=== PATIENT | male | born 1965 | race Asian ===

== ENCOUNTER 2018-10-08 15:13 | Emergency (ER) | payer OTHER ==
[2018-10-08 15:27] VITALS: BP 153/100; TEMP 98.4; BMI 28.7
--- NOTE | 2018-10-08 15:56 | PDOC ---
History of Present Illness - General Chief Complaint: Blood Pressure Problem Stated Complaint: HTN Time Seen by Provider: 10/08/18 15:37 History Source: Patient (Patient walked in complaining of his blood pressure not being controlled, SOB [place] [address] [place] Care Provider (Went to [facility] where the pressure recorded there was very high 180 150 ! PFew months prior he stopped his med ( Lisinopril ) because he felt fine. Restarted first dose yesterday.) - History of Present Illness Timing/Duration: 24 hours Severity: moderate Modifying Factors: improves with: rest Associated Symptoms: reports: denies symptoms Past History - Travel Traveled outside of the country in the last 30 days: No Close contact w/someone who was outside of country & ill: No - Past Medical History Home Medications: Ambulatory Orders Amlodipine Besylate [Norvasc -] 5 mg PO DAILY 10/08/18 Lisinopril 20 mg PO DAILY 10/08/18 Pravastatin Sodium [Pravachol (Nf)] 40 mg PO HS 10/08/18 COPD: No HTN: Yes Hypercholesterolemia: Yes - Suicide/Smoking/Psychosocial Hx Smoking History: Never smoked Have you smoked in the past 12 months: No Information on smoking cessation initiated: No Hx Alcohol Use: No Drug/Substance Use Hx: No Review of Systems - Review of Systems Able to Perform ROS?: Yes Is the patient limited Green[place]ic proficient: Yes Constitutional: Yes: Weight Stable HEENTM: No: Symptoms Reported, See HPI, Eye Pain, Blurred Vision, Tearing, Recent change in vision, Double Vision, Cataracts, Ear Pain, Ocular Prothesis, Ear Discharge, Nose Pain, Nose Congestion, Tinnitus, Nose Bleeding, Hearing Loss , Throat Pain, Throat Swelling, Mouth Pain, Dental Problems, Difficulty Swallowing, Mouth Swelling, Other Respiratory: No: Symptoms reported, See HPI, Cough, Orthopnea, Shortness of Breath, SOB with Exertion, SOB at Rest, Stridor, Wheezing, Productive cough, Hemoptysis, Other Cardiac (ROS): No: Symptoms Reported, See HPI, Chest Pain, Edema, Irregular Heart Rate, Lightheadedness, Palpitations, Syncope, Chest Tightness, Other ABD/GI: No: Symptoms Reported, See HPI, Abdominal Distended, Abd. Pain w/ defecation, Blood Streaked Bowels, Constipated, Diarrhea, Difficulty Swallowing , Nausea, Poor Appetite, Poor Fluid Intake, Rectal Bleeding, Vomiting, Indigestion, Abdominal cramping, Tarry Stools, Other *Physical Exam - Vital Signs Last Vital Signs Temp Pulse Resp BP Pulse Ox 98.4 F 79 20 153/100 79 L 10/08/18 15:14 10/08/18 15:14 10/08/18 15:14 10/08/18 15:14 10/08/18 15:14 - Physical Exam General Appearance: Yes: Nourished, Appropriately Dressed, Obese HEENT: positive: SLIM, Normal ENT Inspection Neck: positive: Normal Thyroid, Supple Respiratory/Chest: positive: Lungs Clear, Normal Breath Sounds Cardiovascular: positive: Regular Rate, S1, S2 Musculoskeletal: positive: Normal Inspection Extremity: positive: Normal Capillary Refill Integumentary: positive: Normal Color Neurologic: positive: dried yeast supervisor II-XII NML intact, Fully Oriented, Alert, Normal Mood/ Affect Medical Decision Making - Medical Decision Making Patient responded to one dose of Lisinopril (after interupting for many months) Blood pressure still in a high bracket , much lower than the one prior to the meds Avoiding to lower too fast, arranged follow up with PMD for tomorrow Alert , comfortable understanding discharge instructions 10/08/18 17:48 *DC/Admit/Observation/Transfer Diagnosis at time of Disposition: Non-compliance with treatment Hypertension Qualifiers: Hypertension type: unspecified secondary hypertension Qualified Code(s): I15.9 - Secondary hypertension, unspecified - Discharge Dispostion Disposition: HOME Condition at time of disposition: Improved Decision to Admit order: No - Referrals - Patient Instructions Printed Discharge Instructions: DI for High Blood Pressure, How to Monitor Your Blood Pressure at Home Additional Instructions: Low salt diet Follow up with your PMD in [place] as scheduled for tomorrow at 10 am Rest Continue medication - Post Discharge Activity Forms/Work/School Notes: Back to Work
[2018-10-08 16:10] VITALS: PULSE 68
== END 2018-10-08 16:17 | disposition home or self-care (01) ==
LOC: FER 15:13
DX: I15.9 Secondary hypertension, unspecified (principal); Z91.14 Patient's other noncompliance with medication regimen; E78.00 Pure hypercholesterolemia, unspecified
CPT/HCPCS: 99281-25

== ENCOUNTER 2021-08-18 09:37 | Emergency (ER) | payer OTHER ==
[2021-08-18 10:17] VITALS: TEMP 97.9; BMI 28.5
[2021-08-18] MEDS ORDERED: ACETAMINOPHEN 325 MG TABLET (FP) PO ONE (10:27)
[2021-08-18] MEDS ORDERED: ACETAMINOPHEN 325 MG TABLET (FP) ONE (10:28)
[2021-08-18 11:47] VITALS: BP 138/87; PULSE 65
== END 2021-08-18 11:50 | disposition home or self-care (01) ==
LOC: FER 09:37
DX: R51.9 Headache, unspecified (principal)
CPT/HCPCS: 70450-TC; 99284-25